=== PATIENT | male | born 1960 | race Hispanic/Latino ===

== ENCOUNTER 2017-12-18 15:38 | Emergency (ER) | payer BC, SELFPAY ==
[2017-12-18] MEDS ORDERED: Lidocaine Viscous Sol 2% 15 ml UD Cup ONE (16:00)
--- NOTE | 2017-12-18 16:53 | RAD ---
TWO VIEWS SOFT TISSUE NECK 12/18/17 HISTORY: Choked on a bone and has sore throat. COMPARISON: None. FINDINGS: There is no prevertebral soft tissue swelling. The visualized cervical spine demonstrates preservatio n of vertebral body height. No fracture. Mild degenerative changes of C5-C6 and C6-C7. Predental spac e is normal. Epiglottis appears to be unremarkable. No radiopaque foreign body. IMPRESSION: No radiopaque foreign body. Direct visualization is recommended. POS: ESTEE
--- NOTE | 2017-12-19 10:14 | CON ---
DATE OF CONSULTATION: 12/18/2017 Consult from emergency room with Dr. Bautista. SUBJECTIVE: The patient was seen in ER with sensation that he had something stuck in his throat. Re ports that he was eating fish yesterday and upon taking quite a large bite felt as though something h ad lodged in his throat and has had this sensation since anytime he swallows. He has a feeling of ga gging, coughing spitting up lots of excess saliva; however, has not had any trouble breathing. X-ray was obtained and did not show any specific foreign body. Therefore, ear, nose and throat were consulted to take a closer look with the scope. OBJECTIVE: The patient is well developed. He is well nourished. He was in no acute distress at the time of exam. spray was put in both nostrils to allow for use of the flex scope. A flex scop e was used to examine the entire nasopharyngeal region. Nasal passages were clear. Some postnasal d rainage was present. Upon viewing the epiglottis and larynx regions, some swelling evidence of possi ble reflux; however, there was also a small red irritated portion in left side of the epiglottis betw een base of tongue and anterior epiglottis. Upon closer examination, there appeared to be a small wh ite object lodged in between the same area of anterior epiglottis and base of tongue, patient swallow 4 to 5 times to ensure this was not just some saliva that had become trapped in that area. Appearan ce did not change with subsequent swallowing. This did appear to look like a small bone that had bec ome lodged in this area. Patient also reported with every episode of swallowing that he felt the dis comfort and pain. ASSESSMENT: Foreign body epiglottis region. PLAN: discussed with Dr. Mason over the phone. The patient has been placed on operative schedule f or tomorrow morning for removal of foreign body from the epiglottis region. He is to report at 8:00 in the morning and has been instructed to not eat or drink anything past midnight.
== END 2017-12-18 18:57 | disposition home or self-care (01) ==
LOC: ERS 15:38
DX: T18.128A Food in esophagus causing other injury, initial encounter (principal)
CPT/HCPCS: 70360

== ENCOUNTER 2019-02-20 10:43 | Outpatient (CLI) | payer OTHER ==
--- NOTE | 2019-02-20 11:27 | ULT ---
Venous duplex sonogram left lower extremity HISTORY: Left leg pain and edema. Popliteal fossa mass. FINDINGS: The left common femoral vein and greater saphenous junction were evaluated along with the f emoral, deep femoral, popliteal, and posterior tibial veins. There is good color and spectral Doppler flow, compression, and augmentation. At the left popliteal fossa, an oval complex fluid collection with extensive internal septations angelique ures up to 3.9 cm length by 2.2 cm depth. Internal septation and complexity may be related to prior hemorrhagic component or synovial proliferation. IMPRESSION: No sonographic evidence of DVT within the left lower extremity. Large complex Urban cyst left popliteal fossa.
== END 2019-02-20 10:44 | disposition home or self-care (01) ==
LOC: SCSULT 10:43
PROVIDERS: ATTEND Family Medicine
DX: S83.92XD Sprain of unspecified site of left knee, subsequent encounter (principal); S33.5XXD Sprain of ligaments of lumbar spine, subsequent encounter; M71.22 Synovial cyst of popliteal space [Baker], left knee

== ENCOUNTER 2021-03-17 08:50 | Emergency (ER) | payer BC, OTHER ==
[2021-03-17] MEDS ORDERED: Ketorolac Tromethamine 30 MG/ML VIAL ONE (09:57)
[2021-03-17] MEDS ORDERED: Cyclobenzaprine 10 MG TAB ONE (09:57)
== END 2021-03-17 10:45 | disposition home or self-care (01) ==
LOC: ERS 08:50
DX: S39.012A Strain of muscle, fascia and tendon of lower back, initial encounter (principal); M46.06 Spinal enthesopathy, lumbar region; X50.0XXA Overexertion from strenuous movement or load, initial encounter
CPT/HCPCS: 72100; 96372; J1885

== ENCOUNTER 2024-05-04 09:04 | Emergency (ER) | payer BC, OTHER ==
[2024-05-04] MEDS ORDERED: Acetaminophen 500 MG TAB ONE (09:54)
[2024-05-04] MEDS ORDERED: Ketorolac Tromethamine 30 MG (1 mL) VIAL ONE (09:58)
== END 2024-05-04 10:48 | disposition home or self-care (01) ==
LOC: ERS 09:04
DX: J98.4 Other disorders of lung (principal); R05.9 Cough, unspecified; R50.9 Fever, unspecified; R52 Pain, unspecified
CPT/HCPCS: 71046; 87428; 96372; J1885